=== PATIENT | male | born 1960 | race African-American/Black ===

== ENCOUNTER 2018-08-13 11:52 | Inpatient (IN) | payer OTHER, MEDICAID ==
[~2018-08-13] VITALS: Ht 175.3 cm; Wt 93.0 kg
[2018-08-13] MEDS ORDERED: ONDANSETRON HCL 4MG/2ML INJ IV STA ×2 (12:22→15:00)
[2018-08-13 12:43] LABS: BASOPHILS % 0.4 % (0.0-2.0); CHLORIDE 102 mEq/L (98-107); EOSINOPHILS % 0.3 % (0.0-5.0); HEMATOCRIT. 41.3 % (42.0-52.0); HEMOGLOBIN. 14.1 g/dL (14.0-18.0); MEAN CORPUSCULAR VOLUME 87.7 fL (80.0-94.0); MEAN PLATELET VOLUME 8.4 fl (7.4-10.4); MONOCYTES % 8.6 % (2.0-8.0); NEUTROPHILS % 70.7 % (40.0-76.0); PLATELET 312 x1000/uL (130-400); RED BLOOD CELL COUNT 4.71 mill/uL (4.7-6.1); RED CELL DISTRIBUTION WIDTH 15.1 % (11.6-14.6)
[2018-08-13 12:46] LABS: PARTIAL THROMBOPLASTIN TIME 23.8 sec (23.4-31.0); PROTHROMBIN TIME 10.1 sec (9.1-11.1)
[2018-08-13 14:01] LABS: *BARBITURATES SCREEN URINE NEGATIVE (NEGATIVE); *BENZODIAZEPINES SCREEN URINE NEGATIVE (NEGATIVE)
[2018-08-13 14:02] LABS: *COCAINE SCREEN URINE NEGATIVE (NEGATIVE); CANNABINOID URINE SCREEN NEGATIVE (NEGATIVE); METHADONE URINE SCREEN NEGATIVE (NEGATIVE); OPIATES URINE SCREEN NEGATIVE (NEGATIVE); PHENCYCLIDINE URINE SCREEN NEGATIVE (NEGATIVE)
[2018-08-13 14:03] LABS: *AMPHETAMINES SCREEN URINE NEGATIVE (NEGATIVE)
[2018-08-13] MEDS ORDERED: ASPIRIN 81MG TABLET PO ONE (15:00)
[2018-08-13] MEDS ORDERED: MORPHINE SULFATE 4 MG/ML CPJ (NOT FOR IM USE) IV STA (15:00)
[2018-08-13] MEDS ORDERED: NITROGLYCERIN OINT 1GM/INCH UDPKT TD ONE (15:00)
[2018-08-13] MEDS ORDERED: SODIUM CHLORIDE 0.9% 1,000 ML IV SCH (17:13)
[2018-08-13] MEDS ORDERED: ENOXAPARIN 40MG/0.4ML SYR SUBCUT SCH (17:15)
[2018-08-13 17:47] LABS: PHOSPHORUS 3.5 mg/dL (2.5-4.9)
[2018-08-13 18:07] LABS: HEPATITIS B SURFACE ANTIGEN NEGATIVE
[2018-08-13 18:37] LABS: HEPATITIS A AB IGM NEGATIVE (NEGATIVE)
[2018-08-13] MEDS ORDERED: ONDANSETRON HCL 4MG/2ML INJ IV PRN (21:45)
[2018-08-13] MEDS ORDERED: GUAIFENESIN 200MG/10ML SUGAR FREE UDC PO PRN (21:46)
[2018-08-13] MEDS ORDERED: DIPHENHYDRAMINE 50MG/ML VIAL IV PRN (21:46)
[2018-08-13] MEDS ORDERED: IPRATROPIUM/ALBUTEROL 0.5-3(2.5)MG/3ML NEB INH PRN (21:46)
[2018-08-13] MEDS ORDERED: DOCUSATE SODIUM 100MG CAPSULE PO PRN (21:46)
[2018-08-13] MEDS ORDERED: MORPHINE SULFATE 4 MG/ML CPJ (NOT FOR IM USE) IV PRN (21:47)
[2018-08-13 23:28] LABS: CREATINE KINASE 715 IU/L (39-308)
[2018-08-14 06:14] LABS: BASOPHILS % 0.2 % (0.0-2.0); EOSINOPHILS % 0.8 % (0.0-5.0); HEMOGLOBIN. 13.2 g/dL (14.0-18.0); LYMPHOCYTES % 19.8 % (20.0-50.0); MEAN CORPUSCULAR HEMOGLOBIN 29.8 pg (28.0-32.0); MEAN CORPUSCULAR VOLUME 87.8 fL (80.0-94.0); MEAN PLATELET VOLUME 7.9 fl (7.4-10.4); MONOCYTES % 11.7 % (2.0-8.0); NEUTROPHILS % 67.5 % (40.0-76.0); PLATELET 287 x1000/uL (130-400); RED BLOOD CELL COUNT 4.44 mill/uL (4.7-6.1); RED CELL DISTRIBUTION WIDTH 14.9 % (11.6-14.6)
[2018-08-14 06:20] LABS: CHLORIDE 101 mEq/L (98-107)
[2018-08-14 06:32] LABS: LDL CHOLESTEROL 81 mg/dL (5-100)
[2018-08-14 06:33] LABS: CREATINE KINASE 646 IU/L (39-308); HDL CHOLESTEROL 50 mg/dL (40-59)
[2018-08-14] MEDS ORDERED: LISI-604 MT (12:04)
[2018-08-14] MEDS ORDERED: LORA-249 MT (12:04)
[2018-08-14] MEDS ORDERED: ASPI-1159 MT (12:04)
[2018-08-14] MEDS ORDERED: ATOR20TA65 PO (12:57)
[2018-08-14] MEDS ORDERED: ASPIRIN 81MG TABLET PO NR (13:00)
[2018-08-14] MEDS ORDERED: LISINOPRIL 20MG TABLET PO NR (13:30)
[2018-08-14 18:54] LABS: CREATINE KINASE MB FRACTION < 1.0 ng/mL (0.5-3.6)
[2018-08-14] MEDS: ACETAMINOPHEN 325MG TABLET PO PRN (21:21)
[2018-08-15 04:54] LABS: HEMATOCRIT. 42.5 % (42.0-52.0); HEMOGLOBIN. 14.3 g/dL (14.0-18.0); MEAN CORPUSCULAR HEMOGLOBIN 29.6 pg (28.0-32.0); MEAN CORPUSCULAR VOLUME 88.1 fL (80.0-94.0); MEAN PLATELET VOLUME 8.3 fl (7.4-10.4); PLATELET 297 x1000/uL (130-400); RED BLOOD CELL COUNT 4.82 mill/uL (4.7-6.1); RED CELL DISTRIBUTION WIDTH 14.7 % (11.6-14.6)
[2018-08-15 04:56] LABS: CHLORIDE 102 mEq/L (98-107)
[2018-08-15 05:07] LABS: CREATINE KINASE 475 IU/L (39-308)
[2018-08-15 06:55] LABS: PLATELET ESTIMATE NORMAL
[2018-08-15] MEDS ORDERED: LORAZEPAM 2MG/ML CPJ IV PRN (09:00)
[2018-08-15 09:40] VITALS: BP 151/100
[2018-08-15] MEDS: ENOXAPARIN 40MG/0.4ML SYR SUBCUT SCH (11:45)
[2018-08-15] MEDS: LISINOPRIL 20MG TABLET PO SCH (11:46)
[2018-08-15 12:00] VITALS: BP 103/71
[2018-08-15] MEDS ORDERED: LORAZEPAM 1MG TABLET PO NR (15:30)
[2018-08-15 16:00] VITALS: BP 137/89
[2018-08-15] MEDS ORDERED: INFLUENZA VIRUS VACCINE(AFLURIA) 0.5ML SYR IM ONE (16:45)
[2018-08-15] MEDS ORDERED: PNEUMOCOCCAL 23-VAL P-SAC VAC 0.5 ML IM ONE (16:45)
[2018-08-15] MEDS ORDERED: METOPROLOL TARTRATE 50MG TABLET PO NR (17:15)
[2018-08-15 17:40] LABS: ETHANOL BLOOD < 10 mg/dL
[2018-08-15 17:46] LABS: T4 FREE 0.86 ng/dL (0.76-1.46)
[2018-08-15] MEDS: ACETAMINOPHEN 325MG TABLET PO PRN (17:47)
[2018-08-15 18:08] LABS: FOLIC ACID (FOLATE) SERUM > 20.00 ng/mL (>5.38); VITAMIN B12 SERUM 383 pg/mL (211-911)
[2018-08-15 20:00] VITALS: BP 137/92
[2018-08-16] VITALS: BP 109/59
[2018-08-16 04:00] VITALS: BP 109/70
[2018-08-16] MEDS ORDERED: PNEUMOCOCCAL 23-VAL P-SAC VAC 0.5 ML IM ONE (05:00)
[2018-08-16 08:00] VITALS: BP 112/75
[2018-08-16] MEDS ORDERED: REGADENOSON 0.4 MG/5 ML IV ONE ×2 (08:27→17:15)
[2018-08-16] MEDS: ENOXAPARIN 40MG/0.4ML SYR SUBCUT SCH (10:35)
[2018-08-16] MEDS: LISINOPRIL 20MG TABLET PO SCH (10:35)
[2018-08-16 12:00] VITALS: BP 133/88
[2018-08-16 16:00] VITALS: BP 113/76
== END 2018-08-16 18:05 | disposition home or self-care (01) | DRG 69 ==
LOC: ER 11:52 → 8WST 15:07 → EDBEDREQTM 15:10 → EDBEDREQ 15:10 → ENRESERV 08-15 07:15
PROVIDERS: ADMIT Internal Medicine; ATTEND Internal Medicine
PROC: 4A00X4Z Measurement of Central Nervous Electrical Activity, External Approach (ICD-10-PCS; principal; 2018-08-16)
DX: G45.9 Transient cerebral ischemic attack, unspecified (principal); F41.0 Panic disorder [episodic paroxysmal anxiety]; I10 Essential (primary) hypertension; E78.5 Hyperlipidemia, unspecified; K21.9 Gastro-esophageal reflux disease without esophagitis; K82.8 Other specified diseases of gallbladder; K57.90 Diverticulosis of intestine, part unspecified, without perforation or abscess without bleeding; E11.9 Type 2 diabetes mellitus without complications; E78.1 Pure hyperglyceridemia; K80.20 Calculus of gallbladder without cholecystitis without obstruction; F17.200 Nicotine dependence, unspecified, uncomplicated; R26.2 Difficulty in walking, not elsewhere classified
CPT/HCPCS: 36415; 71045; 74176; 78452; 80048; 80061; 80305; 80320; 82550; 82553; 82607; 82746; 83036; 83735; 83880; 84100; 84439; 84443; 84481; 84484; 86705; 86709; 86803; 87340; 90732; 93005; 93017; 93880; 93970; 96374; 96375; 96376; 97162; 97166; 99284; 99285; A9500; J1650; J2270; J2405; J2785; G0480